=== PATIENT | male | born 2000 | race Caucasian/White ===

== ENCOUNTER 2023-02-25 00:05 | Emergency (ER) | payer OTHER, SELFPAY ==
[2023-02-25 00:13] VITALS: BP 125/77; PULSE 90; RESP 16; TEMP 36.8; O2SAT 100
[2023-02-25 01:35] VITALS: BP 117/78; PULSE 70; RESP 16; O2SAT 100
[2023-02-25 01:42] LABS: Basophils Percent Auto 0.5 % (0.2-1.2); Eosinophils Absolute Auto 0.2 K/mm3 (0-0.3); Eosinophils Percent Auto 2.1 % (0-4.4); Hematocrit 40.3 % (42.0-52.0); Hemoglobin 14.8 g/dL (14.0-18.0); Immature Granulocyte Absolute 0.02 K/mm3 (0.00-0.031); Immature Granulocyte Percent A 0.3 % (0-0.5); Lymphocytes Percent Auto 28.5 % (18.3-44.2); Mean Corpuscular HGB Conc 36.7 g/dl (32-36); Mean Platelet Volume 10.2 fl (7.4-10.4); Monocytes Absolute Auto 0.7 K/mm3 (0.1-0.6); Monocytes Percent Auto 8.6 % (2.6-8.5); Neutrophils Absolute Auto 4.6 K/mm3 (1.3-6.7); Platelet Count Result 317 k/mm3 (150-375); Red Blood Count 4.63 M/mm3 (4.6-6.20); Red Cell Distribution Width 12.2 % (11.5-14.5); White Blood Count 7.7 K/mm3 (4.5-10.0)
[2023-02-25 01:43] LABS: Appearance Urine Clear (Clear); Bilirubin Urine Negative (Negative); Blood Urine Negative (Negative); Color Urine Yellow (Yellow); Glucose Urine UA Negative (Negative); Ketones Urine Negative (Negative); Leukocyte Esterase Ur Negative LEU/UL (Negative); Nitrate Urine Negative (Negative); Protein Urine Negative (Negative); Specific Grav Ur 1.012 (1.001-1.035); Urobilinogen Urine 0.2 mg/dL (<2.0)
--- NOTE | 2023-02-25 01:45 | ED.GENADULT ---
HPI - General Adult General Chief complaint: Abdominal Pain Stated complaint: N/V, abd pain, ear pain Time Seen by Provider: 02/25/23 01:28 History of Present Illness HPI narrative: Patient 22-year-old gentleman presents emergency department with chief complaint of cerumen impaction and abdominal pain. The patient reports he was seen at another ER 2 days ago diagnosed with colitis and started on Cipro and Flagyl patient states that he still having some discomfort in his abdomen and also reports that he has fullness in his ears where he has wax buildup. Patient states that he has been compliant with medication denies fever denies blood in his stool. Related Data Allergies Allergy/AdvReac Type Severity Reaction Status Date / Time No Known Allergies Allergy Verified 02/25/23 00:37 Review of Systems Review of Systems: A 10 system review of systems was completed on the patient and is negative except for what is stated in the HPI. Nursing and ancillary documentation was reviewed. Exam Narrative: GENERAL: Well-appearing, well-nourished, and in no acute distress. HEAD: Normocephalic, atraumatic. EYES: PERRLA and EOMI. ENT: Nares clear, no rhinorrhea or epistaxis. Mucous membranes moist. NECK: Supple. CHEST: Clear to auscultation. No respiratory distress. HEART: Regular rate and rhythm. No murmur heard. Normal peripheral pulses. ABDOMEN: Soft, mild diffuse tenderness, nondistended, normal active bowel sounds. EXTREMITIES: Normal range of motion. No edema. SKIN: Warm, dry, no rash. NEURO: No focal deficits. Alert and oriented x3. PSYCH: Normal mood and affect. Course Vital Signs Vital signs: Vital Signs Temperature 36.8 C 02/25/23 00:13 Pulse Rate 90 02/25/23 00:13 Respiratory Rate 16 02/25/23 00:13 Blood Pressure 125/77 02/25/23 00:13 Pulse Oximetry 100 02/25/23 00:13 Oxygen Delivery Room Air 02/25/23 00:13 Temperature 36.8 C 02/25/23 00:13 Pulse Rate 70 02/25/23 01:35 Respiratory Rate 16 02/25/23 01:35 Blood Pressure 117/78 02/25/23 01:35 Pulse Oximetry 100 02/25/23 01:35 Oxygen Delivery Room Air 02/25/23 00:13 Medical Decision Making MDM Narrative Medical decision making narrative: Differential diagnosis include cerumen impaction, colitis, diverticulitis, sepsis, intra-abdominal abscess. Patient underwent laboratory testing which showed a normal white blood cell count normal electrolytes including liver enzymes and normal urinalysis. Patient is on day 2 of his antibiotics from the outlying facility and is still having pain. Patient's exam is not consistent with acute worsening of the pain and it was instructed to the patient that he should consider allowing the medications to work a little bit longer. Nursing staff irrigated the patient's ears and he had no relief of the cerumen impaction Vital Signs Vital Signs: Vital Signs Temperature 36.8 C 02/25/23 00:13 Pulse Rate 90 02/25/23 00:13 Respiratory Rate 16 02/25/23 00:13 Blood Pressure 125/77 02/25/23 00:13 Pulse Oximetry 100 02/25/23 00:13 Oxygen Delivery Room Air 02/25/23 00:13 Temperature 36.8 C 02/25/23 00:13 Pulse Rate 70 02/25/23 01:35 Respiratory Rate 16 02/25/23 01:35 Blood Pressure 117/78 02/25/23 01:35 Pulse Oximetry 100 02/25/23 01:35 Oxygen Delivery Room Air 02/25/23 00:13 Lab Data 02/25/23 01:30 02/25/23 01:30 Labs: Lab Results 02/25/23 Range/Units 01:30 WBC 7.7 (4.5-10.0) K/mm3 RBC 4.63 (4.6-6.20) M/mm3 Hgb 14.8 (14.0-18.0) g/dL Hct 40.3 L (42.0-52.0) % MCV 87.0 (80-100) fl MCH 32.0 (26-34) pg MCHC 36.7 H (32-36) g/dl RDW 12.2 (11.5-14.5) % Plt Count 317 (150-375) k/mm3 MPV 10.2 (7.4-10.4) fl Immature Gran % (Auto) 0.3 (0-0.5) % Neut % (Auto) 60.0 (45.5-73.1) % Lymph % (Auto) 28.5 (18.3-44.2) % [place] % (Auto) 8.6 H (2.6-8.5) % Eos % (Auto) 2.1 (0-4
[2023-02-25 01:51] LABS: Alanine Aminotransferase 14 U/L (6-50); Alkaline Phosphatase 42 U/L (38-126); Anion Gap 8 mmol/L (8-16); Aspartate Amino Transferase 23 U/L (17-59); Bilirubin,Total 0.9 mg/dL (0.2-1.3); Blood Urea Nitrogen 9 mg/dL (9-20); Calcium 9.3 mg/dL (8.4-10.2); Carbon Dioxide 29 mmol/L (22-30); Chloride 103 mmol/L (98-107); Estimated CRCL calculation 96 ml/min; Estimated Glomerular Filt Rate > 60; Glucose 82 mg/dL (65-110); Lipase 39 U/L (23-300); Potassium 3.6 mmol/L (3.4-5.0); Sodium 140 mmol/L (137-145)
[2023-02-25 02:01] LABS: Add Urine Microscopic? NO
== END 2023-02-25 02:46 | disposition home or self-care (01) ==
PROVIDERS: Emergency Provider Emergency Medicine
DX: R10.84 Generalized abdominal pain (principal); H61.23 Impacted cerumen, bilateral
CPT/HCPCS: 36415; 80053; 81003; 83690; 85025; 99283